=== PATIENT | female | born 1990 | race Caucasian/White ===

== ENCOUNTER 2016-10-19 10:56 | Emergency (ER) | payer OTHER ==
[~2016-10-19] VITALS: Ht 157.5 cm; Wt 57.0 kg
[2016-10-19 11:03] VITALS: Ht 157.5 cm; Wt 57.0 kg
[2016-10-19] MEDS ORDERED: ACET500C5 PO (12:48)
[2016-10-19] MEDS ORDERED: AZIT250T94 PO (12:48)
[2016-10-19] MEDS ORDERED: PRENAT PO (12:48)
[2016-10-19] MEDS ORDERED: D-ME473S18 PO (12:48)
--- NOTE | 2016-10-19 13:02 | ERD ---
ER Documentation Chief Complaint Date/Time DATE: 10/19/16 TIME: 13:00 Chief Complaint cough, CWP and back pain X 1.5 weeks, chills. Pt denies fever. HPI This 26-year-old female complains of a cough for last 10 days. She has some anterior pleuritic chest pain as well as some upper back pleuritic pain. She has had some chills and sweating at home. She has slight productive mucus well. She has abdominal pain, vomiting, diarrhea. Last menstrual period was approximately 6 weeks ago. ROS All systems reviewed and are negative except as per history of present illness. Medications Home Meds Active Scripts Acetaminophen* (Tylophen*) 500 Mg Capsule, 1 CAP PO Q6H Y for PAIN AND OR ELEVATED TEMP, #15 CAP Prov:RENATE BELTRAN MD 10/19/16 Dextromethorphan Hb-Promethazine Hcl (Promethazine DM Syrup) 473 Ml Syrup, 5 ML PO Q6H Y for COUGH, #4 OZ Prov:RENATE BELTRAN MD 10/19/16 Azithromycin* (Zithromax*) 250 Mg Tablet, 250 MG PO .ZPACK DIRECTED, #6 TAB TAKE 500 MG (2 TABS) THE FIRST DAY THEN 250 MG (1 TAB) DAYS 2-5 Prov:RENATE BELTRAN MD 10/19/16 Multivit/Min/Fol Ac/Iron/Pren* ( S*) 1 Tab Tab, 1 TAB PO DAILY, #60 TAB Prov:RENATE BELTRAN MD 10/19/16 Reported Medications [none] No Conflict Check 05/17/13 Allergies Allergies: Coded Allergies: Penicillins (Verified Allergy, 05/17/13) PMhx/Soc History of Surgery: No Anesthesia Reaction: No Hx Neurological Disorder: No Hx Respiratory Disorders: No Hx Cardiac Disorders: No Hx Psychiatric Problems: No Hx Miscellaneous Medical Probl: No Hx Alcohol Use: No Hx Substance Use: No Hx Tobacco Use: No Physical Exam Vitals Vital Signs Date Time Temp Pulse Resp B/P Pulse Ox O2 Delivery O2 Flow Rate FiO2 10/19/16 11:03 98.3 71 20 127/76 96 Physical Exam Const: [] Alert, [id number] per Head: Atraumatic Eyes: Normal Conjunctiva ENT: Normal External Ears, Nose and Mouth. Neck: Full range of motion..~ No meningismus. Resp: Clear to auscultation bilaterally Cardio: Regular rate and rhythm, no murmurs Abd: Soft, non tender, non distended. Normal bowel sounds Skin: No petechiae or rashes Back: No midline or flank tenderness Ext: No cyanosis, or edema Neur: Awake and alert Psych: Normal Mood and Affect Procedures/MDM Urine shows incidental positive. Radiologic studies were deferred given to state. Patient denies any vaginal bleeding or pain. Patient is requesting treatment for URI symptoms. Patient will be treated with Zithromax, promethazine and Tylenol and instructed to follow-up with OB for care. She should return for bleeding, pain, new worsening symptoms. Signs and symptoms do not suggest pneumonia, hypoxemia, acute abdomen, complications of as she has no pelvic pain pain or bleeding. Patient was discharged home with prescription of vitamins as well . The patient was stable with no new complaints during the ER course. Clinically, there is no current evidence to suggest meningitis, sepsis, acute abdomen, pneumonia, acute coronary syndrome, pulmonary embolism, or any other emergent condition appearing to require further evaluation or hospitalization. The patient should certainly return for any new or worsening symptoms per the aftercare instructions. They should otherwise follow-up with her primary care doctor for reevaluation this week. Departure Diagnosis: Primary Impression: Weeks of gestation: less than 8 weeks Qualified Code: Z3A.01 - Less than 8 weeks gestation of Additional Impression: URI, acute Condition: Stable Patient Instructions: Acute Bronchitis, , New Dx Referrals: [facility] [place] [address] [facility] [address] [place] [id number]ABUSLEME SANDRA [address] [place] [address] [address] [place] [address] [place], [place] [phone] [facility] [address] [facility] [address] [facility] [address] [facility] [place], [place] [phone] [facility] [address] [place], [place] [id number] [address] [facility] [id number] - SHAWANDA JOHNSON [address], [facility] [address] [address] [place], [place] [address] [facility]. [address], [place] [address] [address] [place] [facility] [address] [place], [place] [phone] Additional Instructions: test positive today. See OB for further evaluation treatment. Recheck for shortness of breath, vomiting, bleeding, new or worsening symptoms RENATE BELTRAN MD Oct 19, 2016 13:02
== END 2016-10-19 13:15 | disposition home or self-care (01) ==
LOC: FTE 10:56
DX: J06.9 Acute upper respiratory infection, unspecified (principal); Z33.1 Pregnant state, incidental
CPT/HCPCS: 99284

== ENCOUNTER 2016-12-15 04:25 | Emergency (ER) | payer OTHER ==
[~2016-12-15] VITALS: Ht 157.5 cm; Wt 57.0 kg
[~2016-12-15 04:25] MED LIST: ACET500C5 PO; AZIT250T94 PO; D-ME473S18 PO; PRENAT PO
[2016-12-15 04:39] VITALS: Ht 157.5 cm; Wt 57.0 kg
[2016-12-15] MEDS ORDERED: ONDANSETRON (ODT) 4 MG TAB ODT STA (06:04)
--- NOTE | 2016-12-15 06:28 | ERD ---
ER Documentation Chief Complaint Date/Time DATE: 12/15/16 TIME: 06:22 Chief Complaint n/v since yesterday, states 11 weeks . denies vb HPI 26-year-old presents with chief complaint of nausea and vomiting since yesterday. She states she is 11 weeks . She denies vaginal bleeding, abdominal pain, flank pain, dysuria, diarrhea, hematemesis, hematochezia, and fever. She has initiated care, has had no problems with her thus far. She notes several sick contacts with similar symptoms. States she is able to keep down small amounts of water, however is vomited after any attempt of eating solid food since yesterday. She has not tried taking any medications for relief of her symptoms. ROS All systems reviewed and are negative except as per history of present illness. Medications Home Meds Active Scripts Ondansetron (Ondansetron Odt) 4 Mg Tab.rapdis, 4 MG PO Q6H Y for NAUSEA AND/OR VOMITING, #10 TAB Prov:Gloria Ramirez PA-C 12/15/16 Acetaminophen* (Tylophen*) 500 Mg Capsule, 1 CAP PO Q6H Y for PAIN AND OR ELEVATED TEMP, #15 CAP Prov:RENATE BELTRAN MD 10/19/16 Dextromethorphan Hb-Promethazine Hcl (Promethazine DM Syrup) 473 Ml Syrup, 5 ML PO Q6H Y for COUGH, #4 OZ Prov:RENATE BELTRAN MD 10/19/16 Azithromycin* (Zithromax*) 250 Mg Tablet, 250 MG PO .ZPACK DIRECTED, #6 TAB TAKE 500 MG (2 TABS) THE FIRST DAY THEN 250 MG (1 TAB) DAYS 2-5 Prov:RENATE BELTRAN MD 10/19/16 Multivit/Min/Fol Ac/Iron/Pren* ( S*) 1 Tab Tab, 1 TAB PO DAILY, #60 TAB Prov:RENATE BELTRAN MD 10/19/16 Reported Medications [none] No Conflict Check 05/17/13 Allergies Allergies: Coded Allergies: Penicillins (Verified Allergy, Unknown, 12/15/16) PMhx/Soc History of Surgery: No Anesthesia Reaction: No Hx Neurological Disorder: No Hx Respiratory Disorders: No Hx Cardiac Disorders: No Hx Psychiatric Problems: No Hx Miscellaneous Medical Probl: No Hx Alcohol Use: No Hx Substance Use: No Hx Tobacco Use: No Physical Exam Vitals Vital Signs Date Time Temp Pulse Resp B/P Pulse Ox O2 Delivery O2 Flow Rate FiO2 12/15/16 06:51 98.1 57 20 107/62 99 Room Air 12/15/16 04:39 98.5 55 20 106/67 99 Physical Exam GENERAL: Non-toxic. No apparent signs of distress. HEENT: Atraumatic. Bilateral eyes are PERRL EOM intact. Normal conjunctiva, no injection. No eyelid or lower eyelid swelling noted. Ears: Normal tympanic membrane, no erythema or bulging. No ear canal swelling. No ear discharge. Nose : no nasal discharge. Throat: Oropharynx normal. Tongue pink and moist. No tonsillar swelling or tonsillar exudates. No lymphadenopathy. LUNGS: Clear to auscultation. No accessory muscle use. No wheezing, no crackles. No signs or symptoms of respiratory distress. HEART: Regular rate and rhythm. No murmurs, clicks, rubs or gallops. ABDOMEN: Soft, nontender and nondistended. Bowel sounds positive. No rebound or guarding. No gross peritoneal signs. No Casper or McBurney point tenderness. No gross masses. BACK: No midline tenderness, no costovertebral tenderness. EXTREMITIES: No peripheral cyanosis or edema. No focal pain or notable trauma. Full range of motion. Good capillary refill. NEURO: The patient moves all 4 extremities with 5/5 strength. Cranial nerves are grossly intact. Normal mental status for age. Good muscle tone. SKIN: There is no apparent rash, petechiae, erythema or swelling. Good skin turgor. Results 24 hrs Current Medications Medications (Trade) Dose Ordered Sig/Es Route PRN Reason Start Time Stop Time Status Last Admin Dose Admin Ondansetron HCl (Zofran Odt) 4 mg ONCE STAT ODT 12/15/16 06:04 12/15/16 06:05 DC 12/15/16 06:11 Procedures/MDM Patient presented with complaint of acute onset nausea and vomiting since yesterday, she denies any other symptoms at this time. She denies fevers, chills, diarrhea, abdominal pain, and dysuria. She states she has not had nausea and vomiting since the onset of her , she also reports several sick contacts with similar symptoms. On examination she has no abdominal tenderness to palpation. She has no guarding or rebound tenderness. Spine to the patient that symptoms are likely due to viral gastroenteritis, I ordered a p.o. challenge and Zofran to be given in the ER. Will reassess patient after treatment. Patient reported relief with Zofran, passed p.o. challenge. Exam to the patient that symptoms are likely due to viral gastroenteritis, mainstay of treatment is supportive, with focus on hydration and fever control. I provided prescription for small amount of Zofran, suggested she only use it for 1 day if necessary, longer use a mask more serious etiology. Patient has no abdominal tenderness on examination, she appears to be no acute distress, and is afebrile. Her vitals are within normal limits, she is not hypotensive or tachycardic. Severe dehydration is unlikely based on her presentation. At this time low suspicion for acute surgical abdomen including appendicitis, cholecystitis, bowel obstruction, bowel perforation, UTI, pyelonephritis, pancreatitis, UTI, ectopic , and . Patient stable for discharge and outpatient management. Advised to follow-up with PCP in 1-2 days. Strict return precautions discussed. Departure Diagnosis: Primary Impression: Nausea and vomiting Vomiting type: unspecified Vomiting Intractability: non-intractable Qualified Code: R11.2 - Non-intractable vomiting with nausea, unspecified vomiting type Additional Impression: Viral gastroenteritis Condition: Glorai Polo PA-C Dec 15, 2016 06:28
[2016-12-15] MEDS ORDERED: ONDA4TAB14 PO (06:34)
[2016-12-15 06:51] VITALS: BP 107/62; PULSE 57; RESP 20; TEMP 98.1
== END 2016-12-15 06:51 | disposition home or self-care (01) ==
LOC: FTE 04:25
DX: O21.9 Vomiting of pregnancy, unspecified (principal); O98.511 Other viral diseases complicating pregnancy, first trimester; A08.4 Viral intestinal infection, unspecified; Z3A.11 11 weeks gestation of pregnancy
CPT/HCPCS: Z7502; Z7610; 99283